=== PATIENT | female | born 1965 | race Caucasian/White ===

== ENCOUNTER 2018-06-20 09:31 | Emergency (ER) | payer OTHER ==
[~2018-06-20] VITALS: Ht 162.6 cm; Wt 59.0 kg
[~2018-06-20 09:31] MED LIST: FIORICET 50-301 EACH PO; NOHOMEMEDICATIONS
[2018-06-20] MEDS ORDERED: NORCO 10-325 T1 EACH PO (10:03)
[2018-06-20] MEDS ORDERED: IBUPROFEN 800800 M1 PO (10:03)
[2018-06-20] MEDS ORDERED: PENICILLIN V P500 MG PO (10:03)
[2018-06-20 10:22] VITALS: BP 154/95
== END 2018-06-20 10:20 | disposition home or self-care (01) ==
LOC: ER 09:31
DX: K08.89 Other specified disorders of teeth and supporting structures (principal); G43.909 Migraine, unspecified, not intractable, without status migrainosus

== ENCOUNTER 2018-10-14 12:04 | Inpatient (IN) | payer OTHER ==
[~2018-10-14] VITALS: Ht 162.6 cm; Wt 81.6 kg
[~2018-10-14 12:04] MED LIST changes: +IBUPROFEN 800800 M1 PO; +NORCO 10-325 T1 EACH PO; +PENICILLIN V P500 MG PO
[2018-10-14 12:07] VITALS: BP 157/72
[2018-10-14] MEDS ORDERED: NORCO 10-325 T1 EACH PO (13:43)
--- NOTE | 2018-10-14 16:03 | NUR ---
PT STOOD UP AND AMB APPROX 10 FT WITH CRUTCHES, BECAME DIAPHORETIC AND PALE. STATED FELT VERY LIGHTHEADED. EASED INTO W/C. AND BROUGHT BACK TO ROOM. CAMIAL NOTIFIED.
[2018-10-14 16:21] LABS: HEMATOCRIT 37.8 % (37.0-47.0); HEMOGLOBIN 12.7 gm/dL (12.0-15.0); MCH 29.8 pg (26.0-34.0); MCHC 33.7 g/dL (28.0-37.0); MCV 88.4 fL (80.0-100.0); RBC 4.27 mil/uL (4.20-5.00); RDW 12.9 % (10.5-14.5); WBC 9.6 thou/uL (4.0-11.0)
[2018-10-14 16:28] LABS: CALCIUM 9.3 mg/dL (8.5-10.1); POTASSIUM 3.3 mmol/L (3.5-5.1)
[2018-10-15 01:28] VITALS: BP 107/56
--- NOTE | 2018-10-15 04:12 | NUR ---
ADMITTETD FROM ER UNDER 'S CARE. AXOX4. ORTHO BOOTS INTACT ON LLE. ICE PACK. LLE ELVATED. SCD ON RLE. NO S/S ACUTE DISTRESS NOTED OR REPORTED UPON ARRIVAL ON UNIT. WILL CONT TO MONITOR FOR ANY CHANGES IN CONDITION.
[2018-10-15 07:08] VITALS: BP 127/67
--- NOTE | 2018-10-15 09:36 | NUR ---
Order received for OT Eval and treat. Will await Ortho consult before initiating.
--- NOTE | 2018-10-15 11:36 | NUR ---
0700: REPORT REC FROM NOC SHIFT, CARE ASSUMED. 0830: HOB ELEVATED FOR A.M. MEAL, FEEDS SELF, APPETITE FAIR, LT KNEE IMMOBILIZER ON, LT KNEE WITH FIRM EDEMA, WARM TO TOUCH, PT/DP BILAT 2+. VS COMPLETED, STABLE. 1100: DR Bettina KAM HERE TO SEE PT, PENDING DC TO HOME AFTER PT IS SEEN BY PEzequiel.
--- NOTE | 2018-10-15 11:51 | NUR ---
saniya spoke with alex via phone call she stated " yes work is [employer] [address], # [phone] jonathan is one who call for ambulance and boss name is carolyn,they can get you information that billing needs"/alex. passed on information to billing dw.
--- NOTE | 2018-10-15 12:13 | NUR ---
INITIAL ASSESSMENT: Received consult for discharge needs. DANAE reviewed chart and spoke with nursing and attending physician. Pt was admitted from home after a fall at work. Work Comp claim is pending. DANAE met with pt at bedside. Introduced role of SW. Pt is alert/orientated x 4. Pt reports she is normally indpendent with ADLs. No use of DME. No hx of HH or SNF placement. Pt states therapy is recommending pt get a roller walker for home use. Pt will also need HH services. Pt has 5 steps to enter to home and pt's needs can be met on the main level. Pt's PCP is Dr. Leighton Au at [facility] in [place]. Therapy to work with pt on stairs. Discussed case with CHELSEA CASTILLO. Awaiting details regarding work comp claim to coordinate post-acute needs. DANAE updated attending physician. DANAE is following to assist as needed with discharge planning.
[2018-10-15 14:45] VITALS: BP 140/72
--- NOTE | 2018-10-15 15:17 | NUR ---
I have reviewed the documentation by CHERYL MARROQUIN from 10/15/18 TO 10/15/18 and I concur with it. Matthew MEDRANO
--- NOTE | 2018-10-15 15:27 | NUR ---
TOWARDS POC PT PAIN CONTROLED BY PRN MEDS-SEE MAR. ORTHO KNEE BRACE IN PLACE. PT/OT WORK WITH HER. PT NO SAFE FOR DC PER PHY. THERAPY.WILL CONTINUE TO MONITOR.
[2018-10-15 15:35] VITALS: BP 127/67
[2018-10-15 20:04] VITALS: BP 141/77
--- NOTE | 2018-10-16 04:15 | NUR ---
Pt. rested quietly at intervals during the night when checked on during frequent rounds. She has been given pain meds (see emar) for c/o pain to her right lower leg with some relief noted. Ortho brace in place to the left lower extremity. Bed alarm is on.
[2018-10-16 07:58] VITALS: BP 144/72
--- NOTE | 2018-10-16 12:18 | NUR ---
DISCHARGE PLANNING. PATIENT DISCHARGING TO HOME. HOME HEALTH NEEDED AT DISCHARGE. WORKMANS COMPENSATION TO COVER PATIENTS DISCHARGE SERVICES, DUE TO FALL AT WORK. 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 CONTACT NUMBER FAX . [facility]ON TO REACH OUT TO PATIENT TO SET UP HOME HEALTH SERVICES. [facility] TO PROVIDE PATIENTS WALKER, WILL DELIVER TO PATIENT AT BEDSIDE PRIOR TO DISCHARGE TODAY. UNIT SW AWARE. UNIT RN AWARE.
--- NOTE | 2018-10-16 12:52 | NUR ---
DC PT IS FOR DC TODAY. MED SCRIPTS GIVEN YESTERDAY BY PROVIDER. DC PACKET PROVIDED. IV DC'D.
--- NOTE | 2018-10-16 14:09 | NUR ---
DISCHARGE NOTE: DANAE reviewed chart and spoke with nursing and attending physician. Pt is medically stable for discharge home today. SW contacted [facility] liaison to deliver roller walker to pt's bedside. [facility] liaison contacted [employer] for authorization. DANAE provided script to [facility] liaison. senior materials planner [facility] Contact info placed in pt's discharge summary. Pt's family to provide transportation home. [facility] [employer] and [employer] T [phone] ext [phone] F [phone] No additional SW needs identified at this time, but is available to assist should needs arise.
== END 2018-10-16 13:50 | disposition home or self-care (01) | DRG 563 ==
LOC: ER 12:04 → EROBS 16:47 → 4W 16:47
PROVIDERS: Physician Assistant; ADMIT Internal Medicine
DX: S82.002A Unspecified fracture of left patella, initial encounter for closed fracture (principal); G43.909 Migraine, unspecified, not intractable, without status migrainosus; W01.0XXA Fall on same level from slipping, tripping and stumbling without subsequent striking against object, initial encounter; Y93.89 Activity, other specified; Y92.89 Other specified places as the place of occurrence of the external cause; Y99.8 Other external cause status
CPT/HCPCS: 10040; 53337